=== PATIENT | male | born 1990 | race Caucasian/White ===

== ENCOUNTER 2018-02-23 07:41 | Emergency (ER) | payer OTHER ==
[2018-02-23] MEDS: LISSAMINE GREEN OPHTH 1.5 MG STRIP OD (07:58)
[2018-02-23] MEDS: TETRACAINE 0.5% OPHTH SOLN 4ML OD (07:58)
== END 2018-02-23 08:34 | disposition home or self-care (01) ==
LOC: M ED 07:41
DX: S05.01XA Injury of conjunctiva and corneal abrasion without foreign body, right eye, initial encounter (principal); H11.31 Conjunctival hemorrhage, right eye; W22.8XXA Striking against or struck by other objects, initial encounter; Y92.89 Other specified places as the place of occurrence of the external cause; Y99.1 Military activity
CPT/HCPCS: 99283